=== PATIENT | female | born 1980 | race Caucasian/White ===

== ENCOUNTER → 2016-11-16 | Outpatient (CLI) | payer BC, OTHER ==
--- NOTE | 2016-11-16 17:02 | XR ---
Abdomen HISTORY: Absent intrauterine contraceptive device Frontal view of the abdomen submitted. Lung bases are not included in the exam. Intrauterine contraceptive device is not evident. There is n o bowel obstruction or pneumoperitoneum. Bone mineralization is maintained. Probable phleboliths in t he pelvis. [place] overlying the lower thoracic spine. IMPRESSION: No foreign body is evident.
== END | disposition home or self-care (01) ==
LOC: RADXRMAIN 14:53
PROVIDERS: ATTEND Obstetrics & Gynecology
DX: T83.39XA Other mechanical complication of intrauterine contraceptive device, initial encounter (principal)
CPT/HCPCS: 74000

== ENCOUNTER 2021-06-15 17:25 | Outpatient (CLI) | payer BC, OTHER ==
[2021-06-15 18:27] LABS: Appearance,Urine Clear (Clear); Bilirubin,Urine Negative (Negative); Blood,Urine Negative (Negative); Color,Urine Yellow; Glucose,Urine (UA) Negative (Negative); Ketones,Urine 4+ (Negative); Leukocyte Esterase,Urine Negative (Negative); Nitrite,Urine Negative (Negative); Protein,Urine Trace (Negative); Specific Gravity,Urine 1.015 (1.001-1.035); Urobilinogen,Urine <2.0 mg/dL (<2.0)
[2021-06-15] MEDS: LACTATED RINGERS 1,000 ML IV ONE ×2 (19:30→20:16)
[2021-06-15 21:30] VITALS: BP 113/72; PULSE 105; RESP 18; TEMP 97.8
--- NOTE | 2021-06-22 17:15 | P.MSEPDOC ---
Presenting Problems - Arrival Data Date of Arrival on Unit: 06/15/21 Time of Arrival on Unit: 17:25 Mode of Transport: Ambulatory - Complaint OB-Reason for Admission/Chief Complaint: Possible Onset of Labor, Pain, Diabetes Comment: Pt assessed initially by Rianna Sanderson RN. Byron Blanca pt presents to triage stating she has felt "yucky" the last 24 hours. Has been nauseated, contractions,. hip, back and thigh pain that goes down back of legs. Some headache. Medical History - Information : 4 Para: 3 Term: 3 : 0 Abortions: Spontaneous or Elective: 0 Number of Living Children: 3 - Gestational Age Gestational Age by GUNNER (wks/days): 35 Weeks and 5 Days - History Comment: Byron Blanca, pt states unsure if due date is jul 15 or . No available in [facility] at this time. Office called to request but they may be gone for day Review of Systems - Review of Systems Constitutional: No problems Breast: No problems ENT: No problems Cardiovascular: No problems Respiratory: No problems Gastrointestinal: No problems Genitourinary: No problems Musculoskeletal: No problems Neurological: No problems Skin: No problems Vital Signs - Temperature Temperature: 97.8 F Temperature Source: Oral - Pulse Pulse Oximetery Pulse Rate: 105 Pulse Assessment Method: Automatic Cuff - Respirations Respiratory Rate: 18 Oxygen Delivery Method: Room Air O2 Sat by Pulse Oximetry: 97 - Blood Pressure Right Arm Blood Pressure: 113/72 Blood Pressure Mean: 85 Blood Pressure Source: Automatic Cuff Medical Screen Scoring - Uterine Contractions Intensity: Mild Resting: Soft to palpation - Assessment - Baby A Baseline FHR: 135 Heart Rate - NICHD Category: Category I (Normal) NST: Reactive Physician Notification - Physician Notified Physician Notified Date: 06/15/21 Physician Notified Time: 18:15 Physician: Octavio Edmond New Order Received: Yes - Notification Comment Comment: Per Rianna Sanderson RN: Dr Edmond called and updated with pt's reason for visit, vitals, complaints pains down legs and hips, contractions at home but not really now, nausea, not wanting to eat or drink much today cat 1 status with reactive NST. orders received orally hydrate and send UA call with results. Dr. Edmond in dept at 1910 and updated re: UA results. Orders received for 2L bolus of LR. Per Dr. Edmond pt may be d/c home after bolus if feeling better Maternal Triage Index - Maternal Triage Index Presenting for scheduled procedure w/no complaint: No - Stat/Priority 1 Stat Priority 1: No - Urgent/Priority 2 Urgent Priority 2: No - Prompt/Priority 3 Prompt Priority 3: Yes Criteria Met for Priority 3: C/o early labor signs 34-36 6/7 weeks Disposition - Disposition OB Disposition: Discharge to home Discharge Date: 06/15/21 Discharge Time: 21:08 I agree with the RN Medical Screening Exam: Yes Physician's MSE Comment: I have neither seen nor examined the patient. Case reviewed; plan agreed upon as documented in EMR&OBIX.: Yes Diagnosis: RELATED CONDITIONS, UNSPECIFIED, THIRD TRIMESTER
== END 2021-06-15 21:08 | disposition home or self-care (01) ==
LOC: FBPOP 17:25
PROVIDERS: ATTEND Obstetrics & Gynecology
DX: O26.93 Pregnancy related conditions, unspecified, third trimester (principal); Z3A.35 35 weeks gestation of pregnancy
CPT/HCPCS: 59025; 81003; 96360; 99214

== ENCOUNTER → 2021-06-29 | Outpatient (CLI) | payer OTHER ==
--- NOTE | 2021-06-29 11:02 | US ---
EXAMINATION TYPE: US OB >= 14 wk fetus DATE OF EXAM: 06/29/2021 COMPARISON: None CLINICAL HISTORY: 40-year-old female O36.63X0 MATERNAL CARE FOR EXCESS GROWTH, TH TECHNIQUE: Transabdominal (TA) FINDINGS: GESTATIONAL AGE / DATING Physician Established: (37 weeks/5 days) EDC: 07/15/2021 Dates by LMP: LMP unknown Dates by First Scan: No previous this is first scan Dates by Current Scan: (36 weeks/3 days) EDC: 07/24/2021 SURVEY IUP: Single PLACENTA: Anterior PREVIA: No Previa BOBBY: 9.5 cm, Low Normal CERVICAL LENGTH (transabdominal: norm > 3.0cm): 4.5 cm BIOMETRY PRESENTATION: Vertex BPD: 8.7 cm 35 weeks / 1 days HC: 32.2 cm 36 weeks / . days AC: 33.3 cm 37 weeks / 2 days FL: 7.3 cm 37 weeks / 4 days ESTIMATED WEIGHT IN GRAMS: 3081 grams ESTIMATED WEIGHT IN LBS/OZ: 6 lbs. 13 oz. WEIGHT PERCENTAGE BASED ON ESTABLISHED DATES: 40.5% HC/AC: 0.97 Normal FL/AC: 22.03, normal FL/HC: 22.81 slightly outside of normal 20.4 - 22.31 HEART RATE: 137 bpm RHYTHM: Normal IMPRESSION: 1. Single lateral intrauterine with established gestational age of 37 weeks 5 days. Average gestational age of 36 weeks 3 days by current ultrasound biometry placing the child at the 41st perc entile for weight. 2. FL/AC is slightly outside the expected range. Other parameters appear satisfactory. Consider follo w-up to ensure appropriate growth. 3. Note that this was not a study to assess anatomy.
== END | disposition home or self-care (01) ==
LOC: RADUSWWP 10:18
PROVIDERS: ATTEND Obstetrics & Gynecology
DX: Z33.1 Pregnant state, incidental (principal); Z3A.37 37 weeks gestation of pregnancy
CPT/HCPCS: 76805

== ENCOUNTER 2021-07-18 19:28 | Inpatient (IN) | payer OTHER ==
[2021-07-18] MEDS ORDERED: OXYTOCIN 10 UNIT/ML 1 ML VIAL IM PRN (21:14)
[2021-07-18] MEDS ORDERED: CARBOPROST TROMETHAMINE 250 MCG/ML 1 ML AMP IM PRN (21:14)
[2021-07-18] MEDS ORDERED: TERBUTALINE 1 MG/ML VIAL SQ PRN (21:14)
[2021-07-18] MEDS ORDERED: METHYLERGONOVINE 0.2 MG/ML 1 ML AMP IM PRN (21:14)
[2021-07-18] MEDS ORDERED: LIDOCAINE 1% (PF) 10 MG/ML (30 ML SDV) SQ PRN (21:14)
[2021-07-18] MEDS ORDERED: OXYTOCIN 30 UNITS/500 ML NS 30 UNIT in SALINE 1 500ML.BAG IV SCH (21:15)
[2021-07-18] MEDS: LACTATED RINGERS 1,000 ML IV SCH ×2 (21:15→22:12)
--- NOTE | 2021-07-18 21:37 | P.HPOB ---
History of Present Illness H&P Date: 07/18/21 Chief Complaint: Strong uterine contractions This is a 40-year-old white female 4 para 3003 EDC 07/18/2021 at 40 weeks gestation who presents tonight with strong uterine contractions. Fetus is been active throughout the . She denies vaginal bleeding or fluid leakage. Past medical history is significant for depression and cholelithiasis. Past surgical history cholecystectomy 2001. Current medications vitamins daily, baby aspirin daily. Family history significant for breast cancer and ovarian cancer. Obstetric history significant for vaginal deliveries 3, all uncomplicated. 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 Father of the baby is her boyfriend and present and involved. She denies tobacco alcohol or drug use. Obstetric history significant for blood type A-, rubella status nonimmune. Pap smear, VDRL testing, urine culture, HIV testing, hepatitis B surface antigen, gonorrhea Chlamydia cultures, and group B strep cultures all negative. One-hour Glucola 125. On exam patient is 5 foot 2 inches, 181 pounds, blood pressure 119/79, pulse 68. The general physical exam is within normal limits. Cervix is 7 cm dilated, 80% effaced, -2 station, vertex presentation. Artificial amniorrhexis reveals dark line stained fluid. heart rate is consistent with reactive NST. Impression: Advanced maternal age, multiparous woman in active labor. All signs reassuring. Plan: Close maternal and surveillance. Anticipate normal spontaneous vaginal delivery. Analgesic options reviewed with the patient. Review of Systems Constitutional: Reports as per HPI Past Medical History Past Medical History: No Reported History History of Any Multi-Drug Resistant Organisms: MRSA Date of last positivie culture/infection: 2015 under left arm per pt MDRO Source:: MRSA Past Surgical History: Cholecystectomy Past Anesthesia/Blood Transfusion Reactions: No Reported Reaction Past Psychological History: Depression Smoking Status: Never smoker Past Alcohol Use History: None Reported Past Drug Use History: None Reported - Past Family History Mother History Unknown: Yes Family Medical History: No Reported History Medications and Allergies Home Medications Medication Instructions Recorded Confirmed Type Pedi Multivit No.25/Folic Acid 2 tab PO DAILY 06/15/21 07/18/21 History [Flintstones Multivit Chew Tab] Allergies Allergy/AdvReac Type Severity Reaction Status Date / Time No Known Allergies Allergy Verified 07/18/21 19:57 Exam Vital Signs Temp Pulse Resp BP Pulse Ox 07/18/21 21:13 97.4 F L 68 18 119/79 98 Intake and Output 07/18/21 07/18/21 07/18/21 06:59 14:59 22:59 Other: Weight 82.1 kg Assessment and Plan Assessment: Advanced maternal age, 40 weeks gestation, active spontaneous labor. All signs reassuring Plan: Close maternal and surveillance. Analgesic options reviewed. Anticipate normal spontaneous vaginal delivery. Time with Patient: Less than 30
[2021-07-18 21:42] LABS: Basophils # (A) 0.1 k/uL (0-0.2); Basophils % (A) 1 %; Eosinophils # (A) 0.1 k/uL (0-0.7); Eosinophils % (A) 1 %; HCT 36.6 % (34.0-46.0); HGB 11.9 gm/dL (11.4-16.0); Lymphocytes # (A) 2.2 k/uL (1.0-4.8); Lymphocytes % (A) 22 %; MCH 26.9 pg (25.0-35.0); MCHC 32.5 g/dL (31.0-37.0); MCV 82.7 fL (80.0-100.0); Mean Platelet Volume 7.7; Monocytes # (A) 0.4 k/uL (0-1.0); Monocytes % (A) 4 %; Neutrophils % (A) 71 %; Platelet Count 212 k/uL (150-450); RBC 4.43 m/uL (3.80-5.40); WBC 9.9 k/uL (3.8-10.6)
[2021-07-18] MEDS ORDERED: SODIUM CHLORIDE 0.9% 100 ML BAG ONE (21:49)
[2021-07-18] MEDS ORDERED: fentaNYL (PF) 50 MCG/ML 5 ML AMP ONE (21:49)
[2021-07-18] MEDS ORDERED: ROPIVACAINE 5MG/ML 20ML VIAL ONE (21:49)
[2021-07-19] MEDS ORDERED: diphenhydrAMINE 50 MG CAP PO PRN (00:49)
[2021-07-19] MEDS ORDERED: LANOLIN CREAM 5 GM TUBE TOPICAL PRN (00:49)
[2021-07-19] MEDS ORDERED: HYDROCORTISONE 2.5% RECTAL CREAM 30 GM TUBE RECTAL PRN (00:49)
[2021-07-19] MEDS ORDERED: SIMETHICONE 80 MG CHEWABLE PO PRN (00:49)
[2021-07-19] MEDS ORDERED: diphenhydrAMINE 50 MG/ML 1 ML VIAL IVP PRN ×2 (00:49)
[2021-07-19] MEDS ORDERED: diphenhydrAMINE 25 MG CAP PO PRN (00:49)
[2021-07-19] MEDS ORDERED: ACETAMINOPHEN TAB 325 MG TAB PO PRN (00:49)
[2021-07-19] MEDS ORDERED: BENZOCAINE/MENTHOL SPRAY 1 GM/SPRAY AEROSOL TOPICAL PRN (00:49)
[2021-07-19] MEDS ORDERED: ZOLPIDEM 5 MG TAB PO PRN (00:49)
--- NOTE | 2021-07-19 00:50 | P.PROBDLV ---
Vaginal Delivery Note - . Vaginal Delivery Note: This is a 40-year-old female 4 para 3003 EDC 07/18/2021 at 40 and one sevenths weeks' gestation. Patient presented in early labor. Official amniorrhexis revealed dark blood-tinged fluid. Blood type is A-, rubella status nonimmune, group B strep cultures negative. Please see my dictated history and physical for details. Epidural was placed per patient's request. Oxytocin augmentation was given as needed. Patient became completely dilated at 0021 hours and began the second stage of labor at that time. Perineal body was prepped and draped in usual sterile fashion. With excellent maternal expulsive efforts the 's head delivered occiput anterior and she restituted accordingly. There was no nuchal cord noted. The left or anterior shoulder was delivered from underneath the pubic symphysis at which time the oropharynx, nasopharynx, and external nares were all bulb suctioned. Patient was officially delivered of a liveborn female infant at 0031 hours. The umbilical cord was doubly clamped and ligated, she was handed to waiting nurses for evaluation where scores of 9 and 9 at one and 5 minutes respectively are given. weighed 7 lbs. 4 oz. or 07/30/2004 grams. The placenta delivered spontaneously, it was inspected and noted to be intact with trivascular cord at 0034 hours. At this time the perineal body was thoroughly inspected. Careful inspection of the cervix, vagina, perineal body, periurethral, and perirectal areas revealed no lacerations or defects. Total estimated blood loss 300 mL's. Patient and her family are allowed to begin the bonding experience in the LDR.
[2021-07-19] MEDS: IBUPROFEN 600 MG TAB PO SCH ×4 (03:59→19:46)
[2021-07-19] MEDS: LACTATED RINGERS 1,000 ML IV SCH (05:29)
[2021-07-19] MEDS: SENNOSIDES-DOCUSATE SODIUM 1 EACH TAB PO SCH ×2 (08:08→19:47)
[2021-07-20] MEDS: IBUPROFEN 600 MG TAB PO SCH ×2 (01:44→04:02)
[2021-07-20 08:33] VITALS: BP 120/77; PULSE 87; RESP 14; TEMP 97.9
[2021-07-20] MEDS ORDERED: MEASLES-MUMPS-RUBELLA VACC/PF 12,500 UNIT/0.5 ML VIAL SQ ONE (09:48)
--- NOTE | 2021-07-20 09:58 | P.DS ---
Providers Date of admission: 07/18/21 20:58 Expected date of discharge: 07/20/21 Attending physician: Octavio Edmond Primary care physician: Stated None - Discharge Diagnosis(es) (1) Normal spontaneous vaginal delivery Current Visit: Yes Status: Acute Hospital Course: The patient is a 40-year-old 4 para 3003 admitted at 40-0/7 weeks by good dating parameters. She is admitted in active labor with all signs reassuring. Her has been essentially uncomplicated. She is Rh- and received RhoGAM at 28 weeks. She otherwise fell into the category of advanced maternal age and declined testing for trisomy. On labor and delivery, all signs reassuring. She underwent artificial rupture of membranes for dark, possibly blood-tinged amniotic fluid. She had an epidural catheter placed for analgesia. She then progressed fairly quickly to complete where after she pushed to a normal spontaneous vaginal delivery of a viable 7 lbs. 4 oz. baby girl with Apgars of 9 at 1 minute and 9 at 5 is. Her course was unremarkable vital signs remained stable and her temperature was afebrile throughout. She was deemed stable for discharge on day #1 was discharged home to follow-up in the office in 6 weeks' time routinely. Discharge instructions included calling for any significantly increased bleeding or foul-smelling lochia, significantly increased fever abdominal pain, perineal complaints, breast complaints, or anything else that concerned her. She is additionally instructed to have nothing in the vagina for at least 6 weeks time to include intercourse. She understood her instructions and agrees to follow up as noted above. Discharge medications included continued vitamins as she has opted to breast-feed. She was additionally to take [id number] analgesic pain medications as needed. Maternal blood type is A- and cord blood was sent for evaluation for the necessity of RhoGAM prior to discharge. Rubella status is nonimmune and she is to receive the MMR vaccination prior to discharge. Procedures: #1. Epidural analgesia 2. Artificial rupture of membranes #3. Normal spontaneous vaginal delivery Patient Condition at Discharge: Stable Plan - Discharge Summary New Discharge Prescriptions: No Action Pedi Multivit No.25/Folic Acid [Flintstones Multivit Chew Tab] 2 tab PO DAILY Discharge Medication List Pedi Multivit No.25/Folic Acid [Flintstones Multivit Chew Tab] 2 tab PO DAILY 01/17/22 [History] Follow up Appointment(s)/Referral(s): Octavio Edmond MD [STAFF PHYSICIAN] - 6 Weeks Discharge Disposition: HOME SELF-CARE
[2021-07-20] MEDS: SENNOSIDES-DOCUSATE SODIUM 1 EACH TAB PO SCH (10:35)
== END 2021-07-20 11:58 | disposition home or self-care (01) | DRG 807 ==
LOC: FBPOP 19:28 → 4FBP 20:58
PROVIDERS: ADMIT Obstetrics & Gynecology; ATTEND Obstetrics & Gynecology
PROC: 10E0XZZ Delivery of Products of Conception, External Approach (ICD-10-PCS; principal; 2021-07-19)
PROC: 10907ZC Drainage of Amniotic Fluid, Therapeutic from Products of Conception, Via Natural or Artificial Opening (ICD-10-PCS; 2021-07-19)
DX: O80 Encounter for full-term uncomplicated delivery (principal); Z37.0 Single live birth; Z3A.40 40 weeks gestation of pregnancy; Z79.82 Long term (current) use of aspirin; Z80.3 Family history of malignant neoplasm of breast; Z80.41 Family history of malignant neoplasm of ovary; Z90.49 Acquired absence of other specified parts of digestive tract
CPT/HCPCS: 59025; 85025; 86850; 86900; 86901; 90471; 90707; 99213

== ENCOUNTER 2023-01-18 00:45 | Inpatient (IN) | payer OTHER ==
[2023-01-18] MEDS: LACTATED RINGERS 1,000 ML IV SCH ×4 (01:00→13:47)
[2023-01-18] MEDS ORDERED: OXYTOCIN 10 UNIT/ML 1 ML VIAL IM PRN (01:08)
[2023-01-18] MEDS ORDERED: CITRIC ACID-SODIUM CITRATE 15 ML CUP PO ONE (01:08)
[2023-01-18] MEDS ORDERED: LACTATED RINGERS 1,000 ML IV ONE (01:08)
[2023-01-18] MEDS ORDERED: CARBOPROST TROMETHAMINE 250 MCG/ML 1 ML AMP IM PRN (01:08)
[2023-01-18] MEDS ORDERED: miSOPROStoL 200 MCG TAB PO PRN (01:08)
[2023-01-18] MEDS ORDERED: METHYLERGONOVINE 0.2 MG/ML 1 ML AMP IM PRN (01:08)
[2023-01-18] MEDS ORDERED: TRANEXAMIC 1,000 MG/100ML-NACL 1,000 MG in EMPTY BAG 1 BAG IV PRN (01:08)
[2023-01-18] MEDS ORDERED: SUCCINYLCHOLINE CHLORIDE 200 MG/10 ML VIAL IV ONE (01:20)
[2023-01-18] MEDS ORDERED: PROPOFOL 10 MG/ML 20 ML VIAL IV ONE (01:20)
[2023-01-18] MEDS ORDERED: ONDANSETRON 4 MG/2 ML VIAL ONE (01:20)
[2023-01-18] MEDS ORDERED: KETOROLAC 30 MG/ML 1 ML VIAL ONE (01:20)
[2023-01-18] MEDS ORDERED: ePHEDrine 50 MG/ML 1 ML VIAL ONE (01:20)
[2023-01-18] MEDS ORDERED: fentaNYL (PF) 50 MCG/ML 2 ML AMP ONE (01:20)
[2023-01-18] MEDS ORDERED: OXYTOCIN 30 UNITS/500 ML NS BAG IV ONE (01:20)
[2023-01-18 02:17] LABS: Anisocytosis Slight; Basophils % (A) 0 %; Eosinophils # (A) 0.1 k/uL (0-0.7); Eosinophils % (A) 1 %; HCT 30.5 % (34.0-46.0); HGB 10.1 gm/dL (11.4-16.0); Lymphocytes # (A) 2.1 k/uL (1.0-4.8); Lymphocytes % (A) 24 %; MCH 26.1 pg (25.0-35.0); MCHC 33.1 g/dL (31.0-37.0); MCV 78.8 fL (80.0-100.0); Mean Platelet Volume 9.3; Microcytosis Slight; Monocytes # (A) 0.4 k/uL (0-1.0); Monocytes % (A) 5 %; Neutrophils # (A) 6.1 k/uL (1.3-7.7); Neutrophils % (A) 70 %; Platelet Count 237 k/uL (150-450); RBC 3.87 m/uL (3.80-5.40); RDW 16.8 % (11.5-15.5); WBC 8.8 k/uL (3.8-10.6)
--- NOTE | 2023-01-18 02:28 | P.HPOB ---
History of Present Illness H&P Date: 01/18/23 Chief Complaint: Of membranes and spontaneous labor This is a 42 year old 5 para 4004 woman with an estimated due date of 01/14/2023 who presents at 40-4/7 weeks gestation complaining of spontaneous rupture of membranes at approximately 12 AM and increasing contraction activity's. Upon presentation to labor and delivery she was noted to be grossly ruptured with meconium-stained fluid and was 8+ centimeters dilated with possible hand presentation. Upon my evaluation on patient was completely dilated and in the complete breech presentation with both feet in the vagina. This is confirmed by bedside ultrasound. Patient was actively lyudmila with strong urge to push. She was counseled regarding the situation and possibility of an inevitable vaginal breech delivery was discussed versus primary section. Due to her advanced cervical dilation and strong urge to push we decided to go to the OR for double set up with possible vaginal breech delivery. Obstetric history. History of 4 term vaginal deliveries in 2021, 2010, 2009, 2003. otherwise uncomplicated. Group B strep negative and blood type A-. Antibody screen negative. Rubella immune, VDRL nonreactive, hep Rama surface antigen negative, gonorrhea and clinic cultures negative Past Medical History Past Medical History: No Reported History History of Any Multi-Drug Resistant Organisms: MRSA Date of last positivie culture/infection: 2015 under left arm per pt MDRO Source:: MRSA Past Surgical History: Cholecystectomy Past Anesthesia/Blood Transfusion Reactions: No Reported Reaction Smoking Status: Never smoker - Past Family History Mother History Unknown: Yes Family Medical History: No Reported History Medications and Allergies Home Medications Medication Instructions Recorded Confirmed Type Pedi Multivit No.25/Folic Acid 2 tab PO DAILY 06/15/21 01/18/23 History [Flintstones Multivit Chew Tab] Allergies Allergy/AdvReac Type Severity Reaction Status Date / Time No Known Allergies Allergy Verified 01/18/23 01:08 Exam Intake and Output 01/17/23 01/17/23 01/18/23 14:59 22:59 06:59 Other: Weight 86.636 kg Results Result Diagrams: 01/18/23 01:07 Abnormal Lab Results - Last 24 Hours (Table) 01/18/23 Range/Units 01:07 Hgb 10.1 L (11.4-16.0) gm/dL Hct 30.5 L (34.0-46.0) % MCV 78.8 L (80.0-100.0) fL RDW 16.8 H (11.5-15.5) % Assessment and Plan (1) Post-dates Current Visit: Yes Status: Acute Code(s): O48.0 - POST-TERM SNOMED Code(s): 73893402 (2) Breech presentation Current Visit: Yes Status: Acute Code(s): O32.1XX0 - MATERNAL CARE FOR BREECH PRESENTATION, UNSP SNOMED Code(s): 2932320 (3) Active labor at term Current Visit: No Status: Acute Code(s): TDX2626 - SNOMED Code(s): 30701824 (4) Advanced maternal age (AMA) in Current Visit: No Status: Acute Code(s): OKM3001 - SNOMED Code(s): 775506 003 (5) Rh negative status during Current Visit: No Status: Acute Code(s): O26.899 - OTH RELATED CONDITIONS, UNSPECIFIED TRIMESTER; Z67.91 - UNSPECIFIED BLOOD TYPE, RH NEGATIVE SNOMED Code(s): 774637122 (6) Spontaneous rupture of amniotic membranes Current Visit: No Status: Acute Code(s): GYV7844 - SNOMED Code(s): 430033425 Plan: 42-year-old for her complete cervical dilation and complete breech presentation in active labor. 204 for double set up possible vaginal breech delivery versus primary section. Anesthetic team and backup pretzel twister
[2023-01-18] MEDS: OXYTOCIN 30 UNITS/500 ML NS 30 UNIT in SALINE 1 500ML.BAG IV SCH ×2 (02:30→05:21)
[2023-01-18] MEDS ORDERED: METOCLOPRAMIDE 5 MG/ML 2 ML VIAL IVP PRN (02:35)
[2023-01-18] MEDS ORDERED: ONDANSETRON 4 MG/2 ML VIAL IVP PRN (02:35)
[2023-01-18] MEDS ORDERED: diphenhydrAMINE 25 MG CAP PO PRN (02:35)
[2023-01-18] MEDS ORDERED: NALOXONE 0.4 MG/ML 1 ML VIAL IV PRN (02:35)
[2023-01-18] MEDS ORDERED: diphenhydrAMINE 50 MG/ML 1 ML VIAL IVP PRN ×2 (02:35)
[2023-01-18] MEDS ORDERED: SIMETHICONE 80 MG CHEWABLE PO PRN (02:35)
[2023-01-18] MEDS ORDERED: ZOLPIDEM 5 MG TAB PO PRN (02:35)
[2023-01-18] MEDS ORDERED: diphenhydrAMINE 50 MG CAP PO PRN (02:35)
--- NOTE | 2023-01-18 02:35 | P.OP ---
Date of Procedure: 01/18/23 Preoperative Diagnosis: Postdates at 40-4/7 weeks Spontaneous rupture of membranes and active labor Meconium-stained fluid Complete breech presentation Postoperative Diagnosis: Same Procedure(s) Performed: Primary low transverse section Anesthesia: DEXTER Surgeon: Meggan Ayala Inbound Ingredient Logistics Specialist #1: Jorge L Mason Estimated Blood Loss (ml): 500 IV fluids (ml): 1,000 Urine output (ml): 400 Pathology: none sent Condition: stable Disposition: floor Indications for Procedure: 42-year-old woman who presented in advanced active labor with spontaneous rupture of membranes at 40-4/7 weeks' gestation. She was found to be complete breech presentation with both feet in the vagina and complete cervical dilation. She was exhibiting strong urge to push in triage and was taken to the operating room for double set up for possible inevitable vaginal breech delivery. When we reached the operating room and the patient was positioned in the dorsal lithotomy position her strong urge to push did dissipate significantly. She attempted pushing 2 times with no descent of the breech. With additional time the decision made to therefore proceed to primary low transverse section. heart tones had been category 1 however with pushing were category 2 with decelerations into the 90s. Operative Findings: Male in complete breech presentation with feet in the vagina. Apgars 8 at 1 minute and 9 at 5 minutes weighing 8 lbs. 4 oz., 3720 g. Intact, three- vessel cord placenta. Normal-appearing bilateral fallopian tubes and ovaries. Description of Procedure: After the patient was counseled she was positioned, prepped and draped in the dorsal supine position. Gen. anesthetic was initiated without incident. A low transverse skin incision was made and carried down to the underlying fascia sharply. The fascia was incised in the midline and extended bilaterally with the Hopper scissors. The superior aspect of the fascial incision was elevated and the underlying rectus muscles dissected off sharply. Inferior aspect the fascial incision also elevated the underlying rectus muscles dissected off sharply. Peritoneum was identified, tented up and entered sharply. Peritoneal incision was extended bluntly. The bladder blade was placed. The uterine segment was not well developed and was thick. A low transverse uterine incision was made and carried down to the underlying amniotic membranes sharply. Scant meconium fluid was noted. Uterine incision was extended bilaterally bluntly. The complete breech was deep in the maternal pelvis. The presenting leg was delivered and with some difficulty and rotation of the same gram the second lower extremity was delivered. With gentle traction the infant was then delivered to the level of the scapula. Rotation only both arms were delivered. The head was flexed and the head was delivered without difficulty. The nose and mouth were bulb suctioned and the cord was clamped and cut. was taken the warmer for assessment where Apgars were 8 at 1 minute and 9 at 5 minutes. An intact, three-vessel cord placenta was manually expressed. The uterus was ex teriorized and cleared of all clot and debris. The uterine incision was then closed in a running locked fashion with 0 Vicryl suture followed by second imbricating layer of the same. Additional [id number] sutures were placed along the incision for hemostasis. The uterus was returned to the abdomen and the gutters were cleared of all clot and debris. The uterine incision was reinspected and noted to be hemostatic. The rectus muscles and peritoneum were reapproximated in the midline with 0 Vicryl suture. The fascial edges rectus muscles and subcuticular tissue were inspected and noted to be hemostatic. Fascia was closed with a 0 Vicryl suture in a single layer. The particular tissue was copiously suction irrigated and reapproximated with 3-0 chromic. The skin was then closed using brisa. All counts reported to me as correct by the operating room staff. The patient was awoken from anesthetic and transported to recovery in good condition. She received Pitocin following cord clamp however did not receive prophylactic antibiotics.
[2023-01-18] MEDS: HYDROmorphone 1 MG/ML 1 ML SYRINGE IVP PRN ×3 (03:53→10:04)
[2023-01-18] MEDS: ACETAMINOPHEN IV (For NPO) 1,000 MG in EMPTY BAG 1 BAG IVPB SCH ×2 (05:07→10:02)
[2023-01-18] MEDS: ACETAMINOPHEN TAB 500 MG TAB PO SCH ×3 (07:16→18:34)
[2023-01-18] MEDS: SENNOSIDES-DOCUSATE SODIUM 1 EACH TAB PO SCH ×2 (07:35→20:50)
[2023-01-18] MEDS: KETOROLAC 15 MG/ML 1 ML VIAL IVP SCH ×3 (07:35→20:49)
[2023-01-18] MEDS: IBUPROFEN 600 MG TAB PO SCH ×2 (08:55→20:42)
[2023-01-19] MEDS: ACETAMINOPHEN TAB 500 MG TAB PO SCH ×5 (00:29→23:30)
[2023-01-19] MEDS: IBUPROFEN 600 MG TAB PO SCH ×5 (02:55→20:33)
[2023-01-19 06:37] LABS: Anisocytosis Slight; Basophils % (A) 0 %; Eosinophils # (A) 0.2 k/uL (0-0.7); Eosinophils % (A) 1 %; HCT 27.5 % (34.0-46.0); HGB 8.8 gm/dL (11.4-16.0); Hypochromasia Slight; Lymphocytes # (A) 1.7 k/uL (1.0-4.8); Lymphocytes % (A) 15 %; MCHC 32.1 g/dL (31.0-37.0); MCV 81.2 fL (80.0-100.0); Mean Platelet Volume 8.5; Monocytes # (A) 0.4 k/uL (0-1.0); Monocytes % (A) 3 %; Neutrophils # (A) 8.8 k/uL (1.3-7.7); Neutrophils % (A) 80 %; Platelet Count 215 k/uL (150-450); RBC 3.38 m/uL (3.80-5.40); RDW 17.2 % (11.5-15.5); WBC 11.1 k/uL (3.8-10.6)
[2023-01-19] MEDS: SENNOSIDES-DOCUSATE SODIUM 1 EACH TAB PO SCH ×2 (08:14→20:33)
--- NOTE | 2023-01-19 08:28 | P.PNOBGPC ---
Subjective - Subjective Patient reports: Reports appetite normal, Reports voiding normally, Reports pain well controlled, Reports ambulating normally : doing well Objective - Vital Signs Latest vital signs: Vital Signs Temp Pulse Resp BP Pulse Ox 01/19/23 00:00 98.7 F 99 18 99/57 97 01/18/23 20:00 98.1 F 72 16 115/79 98 01/18/23 16:00 97.8 F 78 18 107/61 01/18/23 12:00 97.9 F 66 16 102/67 98 - Exam Extremities: Present: normal Abdomen: Present: normal appearance, soft. Absent: distention, tenderness Incision: Present: normal, dry, intact Uterus: Present: normal, firm (The uterine fundus as tonic and moderately tender at the umbilicus.) - Labs Labs: Abnormal Lab Results - Last 24 Hours (Table) 01/19/23 Range/Units 05:48 WBC 11.1 H (3.8-10.6) k/uL RBC 3.38 L (3.80-5.40) m/uL Hgb 8.8 L (11.4-16.0) gm/dL Hct 27.5 L (34.0-46.0) % RDW 17.2 H (11.5-15.5) % Neutrophils # 8.8 H (1.3-7.7) k/uL Assessment and Plan (1) Status post section Current Visit: Yes Status: Acute Code(s): Z98.891 - HISTORY OF UTERINE SCAR FROM PREVIOUS SURGERY SNOMED Code(s): 673601834 Plan: Continue routine and postoperative care. I have encouraged the patient pablo in the hallways routinely. I would anticipate discharge home tomorrow pending complications.
[2023-01-19] MEDS: KETOROLAC 15 MG/ML 1 ML VIAL IVP SCH (11:26)
[2023-01-19 15:31] VITALS: RESP 16
[2023-01-20] MEDS: IBUPROFEN 600 MG TAB PO SCH ×2 (02:32→07:36)
[2023-01-20] MEDS: ACETAMINOPHEN TAB 500 MG TAB PO SCH (06:17)
[2023-01-20] MEDS: SENNOSIDES-DOCUSATE SODIUM 1 EACH TAB PO SCH (07:36)
[2023-01-20 08:27] VITALS: BP 129/72; PULSE 72; TEMP 98.4
--- NOTE | 2023-01-20 08:34 | P.DS ---
Providers Date of admission: 01/18/23 00:52 Expected date of discharge: 01/20/23 Attending physician: Octavio Edmond Primary care physician: Stated None - Discharge Diagnosis(es) (1) Status post section Current Visit: Yes Status: Acute Hospital Course: Patient is a 42-year-old 5 para 4004 admitted at 40-4/7 weeks by good dating parameters. She is admitted in active labor with spontaneous rupture of membranes and meconium fluid noted. Initial evaluation was that the fetus was presenting with a hand presentation. She was sure thereafter found to be in complete breech presentation with both feet in the vagina. This was confirmed by bedside ultrasound. She progressed very quickly to complete and initial attempts to proceed with vaginal breech delivery demonstrated no significant descensus with attempted pushes. As a result, she underwent primary low- transverse section and was delivered of a viable 8 lbs. 4 oz. baby boy with Apgars of 8 at 1 minute and 9 at 5 minutes. Her and postoperative courses were unremarkable with vital signs remained stable and her temperature was afebrile throughout. She was deemed stable for discharge on and postoperative day #2 and was discharged home to follow-up in the office in 2 weeks for an incision check and 6 weeks routinely. Discharge instructions included calling for any significantly increased bleeding or foul- smelling lochia, significantly increased fever abdominal pain, perineal complaints, breast complaints, incisional complaints, or anything else that concerned her. She was additionally instructed to have nothing in the vagina for at least 6 weeks time to include intercourse and to abstain from any heavy lifting over the same period of time. She was less than instructed to do no driving until off of all pain medications or 2 weeks' time, whichever came first. She understood her instructions and agrees to follow up as noted above. Discharge medications included continued vitamins as she has opted to breast-feed. She was otherwise to use [id number] analgesic pain medications. She was provided a prescription for [place] 5/325 mg, 1-2 by mouth every 6 hours when necessary pain, #20 dispensed with no refills. Maternal blood type was A- and cord blood was sent for evaluation for the necessity of RhoGAM prior to discharge. Discharge hemoglobin and hematocrit were 8.8 and 27.5 respectively. Procedures: #1. Primary low-transverse section Patient Condition at Discharge: Stable Plan - Discharge Summary New Discharge Prescriptions: No Action Pedi Multivit No.25/Folic Acid [Flintstones Multivit Chew Tab] 2 tab PO DAILY Discharge Medication List Pedi Multivit No.25/Folic Acid [Flintstones Multivit Chew Tab] 2 tab PO DAILY 06/15/21 [History] Follow up Appointment(s)/Referral(s): Octavio Edmond MD [STAFF PHYSICIAN] - 2 Weeks Discharge Disposition: HOME SELF-CARE
== END 2023-01-20 12:30 | disposition home or self-care (01) | DRG 540 ==
LOC: FBPOP 00:45 → 4FBP 00:52
PROVIDERS: ADMIT Obstetrics & Gynecology; ATTEND Obstetrics & Gynecology
PROC: 10D00Z1 Extraction of Products of Conception, Low, Open Approach (ICD-10-PCS; principal; 2023-01-18 01:49)
DX: O32.1XX0 Maternal care for breech presentation, not applicable or unspecified (principal); O48.0 Post-term pregnancy; O77.0 Labor and delivery complicated by meconium in amniotic fluid; Z37.0 Single live birth; Z3A.40 40 weeks gestation of pregnancy; Z67.91 Unspecified blood type, Rh negative
CPT/HCPCS: 59025; 84112; 85025; 86850; 86900; 86901; 99213